=== PATIENT | male | born 1995 ===

== ENCOUNTER 2019-03-27 18:56 | Emergency (ER) | payer SELFPAY ==
[~2019-03-27] VITALS: Ht 162.6 cm; Wt 77.1 kg
--- NOTE | 2019-03-27 19:15 | ED Lower Extremity ---
General Chief Complaint: Laceration Stated Complaint: KNEE LACERATION Nursing Triage Note: PT AMB TO TRIAGE WITH COMPLAINT OF LACERATION ON RIGHT KNEE. STATES HAPPENED WHILE AT WORK. UNK LAST TETANUS. Nursing Sepsis Screen: No Definite Risk History of Present Illness Date Seen by Provider: Mar 27, 2019 Time Seen by Provider: 19:14 Initial Comments Laceration to the right leg just above the knee from a piece of metal of metal at work. Onset: just prior to arrival Severity: moderate Pain/Injury Location: right knee Method of Injury: unknown Modifying Factors: Improves With Movement Allergies and Home Medications Allergies Coded Allergies: No Known Drug Allergies (Unverified , 03/27/19) Patient Home Medication List Home Medication List Reviewed: Yes Review of Systems Constitutional: see HPI EENTM: see HPI Respiratory: no symptoms reported Cardiovascular: no symptoms reported Genitourinary: no symptoms reported Musculoskeletal: no symptoms reported Skin: see HPI Psychiatric/Neurological: No Symptoms Reported Past Smbxmln-Wyyllk-Tuhtpo Hx Patient Social History Alcohol Use: Denies Use Recreational Drug Use: No Smoking Status: Never a Smoker Recent Foreign Travel: No Contact w/Someone Who Travel: No Recent Infectious Disease Expo: No Recent Hopitalizations: No Immunizations Up To Date Tetanus Booster (TDap): Unknown Seasonal Allergies Seasonal Allergies: No Past Medical History Surgeries: No Respiratory: No Cardiac: No Neurological: No Genitourinary: No Gastrointestinal: No Musculoskeletal: No Endocrine: No HEENT: No Cancer: No Psychosocial: No Integumentary: No Blood Disorders: No Physical Exam Vital Signs Vital Signs - First Documented 03/27/19 19:02 Temp 100.0 Pulse 95 Resp 20 B/P (MAP) 133/100 (111) Pulse Ox 96 O2 Delivery Room Air Capillary Refill : Less Than 3 Seconds Height, Weight, BMI Height: 5'4.00" Weight: 170lbs. oz. 77.773186tu; BMI Method:Stated General Appearance: WD/WN, no apparent distress HEENT: PERRL/EOMI, normal ENT inspection Respiratory: no respiratory distress, no accessory muscle use Hips: bilateral hip non-tender, bilateral hip normal inspection, bilateral hip normal range of motion Legs: bilateral leg non-tender, bilateral leg normal inspection, bilateral leg normal range of motion; right leg other (5 cm laceration to the subcutaneous tissues just above the right knee) Knees: bilateral knee non-tender, bilateral knee normal inspection, bilateral knee normal range of motion Ankles: bilateral ankle non-tender, bilateral ankle normal inspection, bilateral ankle normal range of motion Neurologic/Psychiatric: alert, normal mood/affect, oriented x 3 Skin: normal color, warm/dry Procedures/Interventions Wound Location: Upper Extremities Wound Length (cm): 5 Wound's Depth, Shape: linear, sub Q Wound Explored: clean Anesthesia: 1% Lidocaine Suture: Ethlion Suture Size: 4-0 Number of Sutures: 1 (1 continuous suture) Progress/Results/Core Measures Results/Orders Vital Signs/I&O 03/27/19 19:02 Temp 100.0 Pulse 95 Resp 20 B/P (MAP) 133/100 (111) Pulse Ox 96 O2 Delivery Room Air Blood Pressure Mean: 111 Departure Impression Primary Impression: Knee laceration Qualified Codes: S81.011A - Laceration without foreign body, right knee, initial encounter Disposition: 01 HOME, SELF-CARE Condition: Stable Departure-Patient Inst. Decision time for Depature: 19:14 Referrals: NO,LOCAL PHYSICIAN (PCP/Family) Primary Care Physician Patient Instructions: Laceration Repair With Stitches (DC) Add. Discharge Instructions: 1. You may shower starting tonight leading water run over this. Do not soak this in water such as a hot tub bathtub [place] or swimming pool until the stitches are removed. Return to the emergency room to have the stitches removed in about 10- 12 days. ESTRELLA PINEDA APRN Mar 27, 2019 19:15
[2019-03-27] MEDS ORDERED: TETANUS,DIPTH,PERTUSS P/F (BOOSTRIX) 0.5 ML VIAL IM ONE ×2 (19:26→19:35)
[2019-03-27 19:39] VITALS: BP 133/100
== END 2019-03-27 19:39 | disposition home or self-care (01) ==
LOC: ER 18:58
DX: S81.011A Laceration without foreign body, right knee, initial encounter (principal); W26.8XXA Contact with other sharp object(s), not elsewhere classified, initial encounter; Y92.59 Other trade areas as the place of occurrence of the external cause; Y99.0 Civilian activity done for income or pay
CPT/HCPCS: 12002; 90715